=== PATIENT | female | born 1995 | race Two or more races ===

== ENCOUNTER 2024-03-29 16:05 | Outpatient (CLI) | payer OTHER | END 2024-03-29 16:06 | disposition home or self-care (01) | LOC: PRENATAL 16:05 | PROVIDERS: ATTEND Obstetrics & Gynecology Maternal & Fetal Medicine | DX: O35.3XX0 Maternal care for (suspected) damage to fetus from viral disease in mother, not applicable or unspecified (principal); O44.00 Complete placenta previa NOS or without hemorrhage, unspecified trimester; O34.219 Maternal care for unspecified type scar from previous cesarean delivery; Z3A.20 20 weeks gestation of pregnancy ==

== ENCOUNTER 2024-08-09 08:00 | Inpatient (IN) | payer OTHER ==
[~2024-08-09] VITALS: Ht 149.9 cm; Wt 3.2 kg
[2024-08-09 10:22] LABS: URINE APPEARANCE Clear; URINE BILIRRUBIN Negative (NEGATIVE); URINE BLOOD Negative; URINE COLOR Yellow; URINE GLUCOSE Negative (NEGATIVE); URINE KETONE Negative (NEGATIVE); URINE LEUKOCYTE Negative; URINE NITRATE Negative; URINE PROTEIN Negative (NEGATIVE); URINE UROBILINOGEN 0.2 E.U./dl
[2024-08-09 10:27] LABS: URINE BACTERIA 2371.9 uL (0.0-1933); URINE EPITHELIAL CELLS 15.6 uL (0.0-38.8); URINE WBC 37.2 uL (0.0-23.2)
[2024-08-09 10:30] LABS: URINE CAST 0.14 uL (0.0-1.40)
[2024-08-09 10:36] LABS: HEMATOCRIT 38.9 % (36.0-45.00); HEMOGLOBIN 12.8 g/dL (12.0-15.00); MEAN CELL VOLUME 83.5 fL (80.00-100.00); MEAN CORPUSCULAR HEMOGLOBIN 27.5 pg (27.00-32.0); MEAN CORPUSCULAR HGB CONC 32.9 g/dl (32.0-36.0); PLATELET COUNT 224 K/uL (150-450); RED BLOOD COUNT 4.66 M/uL (4.00-6.00); RED CELL DISTRIBUTION WIDTH 15.8 % (11.5-14.5)
[2024-08-09 11:23] LABS: INR < 0.93; PARTIAL THROMBOPLASTIN TIME 25.6 SECONDS (22.0-34.0); PROTHROMBIN TIME 9.9 SECONDS (9.0-11.5)
[2024-08-09 11:37] LABS: RH POSITIVE
[2024-08-11 12:35] VITALS: BP 119/76
[2024-08-11] MEDS ORDERED: PRENATABS RX T1 EACH PO (12:53)
[2024-08-11] MEDS ORDERED: OXYTOCIN 10 UNITS/ML VIAL ONE (16:59)
[2024-08-11] MEDS ORDERED: CEFAZOLIN SODIUM 1,000 MG VIAL ONE (17:00)
[2024-08-11] MEDS ORDERED: ERYTHROMYCIN BASE OPHT 1GM EACH TUBE OP ONE (17:00)
[2024-08-11] MEDS ORDERED: KETOROLAC TROMETHAMINE 60 MG VIAL IM STA (19:04)
[2024-08-11] MEDS ORDERED: RINGERS SOLUTION,LACTATED 1,000 ML IV SCH (19:15)
[2024-08-11] MEDS ORDERED: OXYTOCIN 1,000 ML IV SCH (19:15)
[2024-08-11] MEDS ORDERED: PROMETHAZINE HCL 25 MG/ML AMPUL IM PRN (19:15)
[2024-08-11] MEDS ORDERED: CHLORHEXIDINE GLUCONATE 120 ML BOTTLE TP SCH (19:15)
[2024-08-11] MEDS ORDERED: MEPERIDINE HCL/PF 50 MG/ML VIAL IM PRN (19:15)
[2024-08-11] MEDS ORDERED: MORPHINE SULFATE 4 MG/ML VIAL IV ONE ×2 (19:35→20:55)
[2024-08-11] MEDS ORDERED: KETOROLAC TROMETHAMINE 60 MG VIAL IM ONE (22:04)
[2024-08-11 23:12] LABS: HEMATOCRIT 39.8 % (36.0-45.00); HEMOGLOBIN 13.3 g/dL (12.0-15.00); MEAN CELL VOLUME 83.7 fL (80.00-100.00); MEAN CORPUSCULAR HEMOGLOBIN 27.9 pg (27.00-32.0); MEAN CORPUSCULAR HGB CONC 33.4 g/dl (32.0-36.0); PLATELET COUNT 202 K/uL (150-450); RED BLOOD COUNT 4.76 M/uL (4.00-6.00); RED CELL DISTRIBUTION WIDTH 15.8 % (11.5-14.5)
[2024-08-12] MEDS ORDERED: PROMETHAZINE HCL 25 MG/ML AMPUL ONE (00:13)
[2024-08-12] MEDS ORDERED: OXYTOCIN 10 UNITS/ML VIAL ONE (00:18)
[2024-08-12 02:00] VITALS: BP 119/63
[2024-08-12 08:05] VITALS: BP 109/67
[2024-08-12] MEDS ORDERED: OxyCODONE HCL/APAP UD (PERCOCET) PO PRN (09:00)
[2024-08-12 15:50] VITALS: BP 119/80
[2024-08-13 01:00] VITALS: BP 119/82
[2024-08-13 08:00] VITALS: BP 110/78
[2024-08-13 15:32] VITALS: BP 132/87
[2024-08-14] VITALS: BP 119/71
[2024-08-14 07:37] VITALS: BP 103/64
== END 2024-08-14 14:01 | disposition home or self-care (01) | DRG 785 ==
LOC: LDR 08-11 08:00 → OB/GYN 08-11 11:00 → O/R 08-11 11:00 → OB/GYN 08-11 20:01
PROVIDERS: ADMIT Obstetrics & Gynecology; ATTEND Obstetrics & Gynecology
PROC: 0UB70ZZ Excision of Bilateral Fallopian Tubes, Open Approach (ICD-10-PCS; 2024-08-11)
PROC: 4A1HXCZ Monitoring of Products of Conception, Cardiac Rate, External Approach (ICD-10-PCS; 2024-08-11)
PROC: 10D00Z1 Extraction of Products of Conception, Low, Open Approach (ICD-10-PCS; principal; 2024-08-11 15:15)
DX: O34.211 Maternal care for low transverse scar from previous cesarean delivery (principal); Z30.2 Encounter for sterilization; Z37.0 Single live birth; Z3A.39 39 weeks gestation of pregnancy